=== PATIENT | female | born 1975 | race Caucasian/White ===

== ENCOUNTER 2017-10-24 07:05 | Day surgery (SDC) | payer BC ==
[2017-10-24] MEDS ORDERED: fentaNYL 100 MCG/2 ML SDV ONE ×2 (07:32→08:30)
[2017-10-24] MEDS ORDERED: Propofol 200 MG/20 ML SDV ONE ×2 (07:32→08:19)
[2017-10-24] MEDS ORDERED: Lidocaine 2% 5 ML SDV ONE (07:32)
[2017-10-24] MEDS ORDERED: Midazolam 1 MG/ML 2 ML SDV ONE (07:33)
[2017-10-24] MEDS ORDERED: ceFAZolin/Dextrose,Iso-Osmotic 2 GM/50 ML Duplex Bag IV ONE (07:51)
--- NOTE | 2017-10-24 07:51 | PCM.PREANE ---
Preanesthetic Assessment - Anesthesia/Transfusion/Family Hx Anesthesia History: Prior Anesthesia Without Reaction Family History of Anesthesia Reaction: No Transfusion History: No Prior Transfusion(s) - Review of Systems General: No Symptoms Pulmonary: No Symptoms Cardiovascular: No Symptoms Gastrointestinal: No Symptoms Neurological: No Symptoms Other: Reports: None - Physical Assessment NPO Status Date: 10/23/17 Height: 1.73 m Weight: 83.915 kg ASA Class: 2 Mental Status: Alert & Oriented x3 Airway Class: Mallampati = 1 Dentition: Reports: Normal Dentition ROM/Head Extension: Full Lungs: Clear to Auscultation, Normal Respiratory Effort Cardiovascular: Regular Rate, Regular Rhythm - Lab Values: Laboratory Last Values Urine HCG, Qual NEGATIVE (NEGATIVE) 10/24/17 07:25 - Allergies Allergies/Adverse Reactions: Allergies Allergy/AdvReac Type Severity Reaction Status Date / Time No Known Allergies Allergy Verified 10/19/17 07:41 - Anesthesia Plan Pre-Op Medication Ordered: None - Acknowledgements Anesthesia Type Planned: MAC Pt an Appropriate Candidate for the Planned Anesthesia: Yes Alternatives and Risks of Anesthesia Discussed w Pt/Guardian: Yes Pt/Guardian Understands and Agrees with Anesthesia Plan: Yes PreAnesthesia Questionnaire HEENT History: Reports: None Gastrointestinal History: Reports: Other (See Below) Other Gastrointestinal History: occasional heartburn Genitourinary History: Reports: None 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 History: Reports: Endometriosis, Endocrine/Metabolic History: Reports: Hypothyroidism - Past Surgical History Head Surgeries/Procedures: Reports: None HEENT Surgical History: Reports: LASIK, Oral Surgery Female Surgical History: Reports: Section, Hysterectomy Other Female Surgeries/Procedures: partial laparoscopic vaginal hysterectomy , laparoscopies for endometriosis - SUBSTANCE USE Smoking Status *Q: Never Smoker Recreational Drug Use History: No - HOME MEDS Home Medications: Home Meds Levothyroxine Sodium 137 mcg PO DAILY 10/19/17 [History] - CURRENT (IN HOUSE) MEDS Current Meds: Current Medications Hydrocodone Bitart/Acetaminophen ([place] 325-5 Mg) 1 tab PO Q4H PRN PRN Reason: Pain Bupivacaine HCl/Epinephrine Bitart (Marcaine 0.25%/Epinephrine 1:200,000) 10 ml INJECT ONETIME ONE Stop: 10/24/17 08:01 Cefazolin Sodium/Dextrose 2 gm (/ Premix) 50 mls @ 100 mls/hr IV ONETIME ONE Stop: 10/24/17 08:29 Lactated Ringer's (Ringers, Lactated) 1,000 mls @ 125 mls/hr IV ASDIRECTED VANESSA Last Admin: 10/24/17 07:33 Dose: 125 mls/hr Discontinued Medications Fentanyl (Sublimaze) Confirm Administered Dose 100 mcg .ROUTE .STK-MED ONE Stop: 10/24/17 07:33 Lidocaine (Xylocaine-Mpf 2%) Confirm Administered Dose 5 ml .ROUTE .STK-MED ONE Stop: 10/24/17 07:33 Midazolam HCl (Versed 1 Mg/Ml) Confirm Administered Dose 2 mg .ROUTE .STK-MED ONE Stop: 10/24/17 07:34 Propofol (Diprivan 20 Ml) Confirm Administered Dose 400 mg .ROUTE .STK-MED ONE Stop: 10/24/17 07:33
[2017-10-24] MEDS ORDERED: Lactated Ringers 1,000 ML IV SCH (08:00)
[2017-10-24] MEDS ORDERED: Acetaminophen/HYDROcodone 325-5 MG Tab PO PRN (08:00)
[2017-10-24] MEDS ORDERED: ceFAZolin 2 GM in Premix Bag 1 BAG IV ONE (08:00)
[2017-10-24] MEDS ORDERED: Bupivacaine 0.25%/EPINEPHrine 1:200,000 10 ML SDV INJECT ONE (08:00)
[2017-10-24] MEDS ORDERED: Ketorolac 30 MG/ML SDV ONE (08:23)
--- NOTE | 2017-10-24 09:25 | PCM.OPNOTE ---
- General Post-Op/Procedure Note Date of Surgery/Procedure: 10/24/17 Operative Procedure(s): excision of left back intramuscular lipoma 4cm. excision of right groin subcutaneous lipoma 3cm Pre Op Diagnosis: back and groin lipomas Post-Op Diagnosis: Same Anesthesia Technique: Local, MAC Primary Surgeon: Alva Rivas Complications: None Condition: Good
--- NOTE | 2017-10-24 10:47 | PCM48HPAN ---
Post Anesthesia Note - EVALUATION WITHIN 48HRS OF ANESTHETIC Vital Signs in Normal Range: Yes Patient Participated in Evaluation: Yes Respiratory Function Stable: Yes Airway Patent: Yes Cardiovascular Function Stable: Yes Hydration Status Stable: Yes Pain Control Satisfactory: Yes Nausea and Vomiting Control Satisfactory: Yes Mental Status Recovered: Yes Resp Rate: 16
--- NOTE | 2017-10-24 10:47 | PCM.POSTAN ---
POST ANESTHESIA ASSESSMENT - MENTAL STATUS Mental Status: Alert, Oriented - RESPIRATORY Respiratory Status: Respiratory Rate WNL, Airway Patent, O2 Saturation Stable - CARDIOVASCULAR CV Status: Pulse Rate WNL, Blood Pressure Stable - GASTROINTESTINAL GI Status: No Symptoms - POST OP HYDRATION Hydration Status: Adequate & Stable
--- NOTE | 2017-10-31 16:21 | OR ---
SURGEON: SHAKIRA CASTAÑEDA MD DATE OF PROCEDURE: 10/24/2017 PREOPERATIVE DIAGNOSIS: Back and groin lipoma. POSTOPERATIVE DIAGNOSIS: Back and groin lipoma with intramuscular component of the back lipoma. PROCEDURES: 1. Excision of left back intramuscular lipoma, 4 cm. 2. Excision of right groin subcutaneous lipoma, 3 cm. ANESTHESIA: Local MAC. INDICATIONS: Ms. Israel is a 42-year-old female with several other lipoma. These lesions having been removed previously. She presents with two that are bothersome to her at this time. The left back lipoma was intramuscular and quite deep and thus elected to be taken care of in the operating room. Risks and benefits of this were discussed with her including, but not limited to, bleeding, infection, damage to underlying or overlying structures, possible need for future interventions, possible scarring. PROCEDURE IN DETAIL: After informed consent was obtained and placed on the chart, the patient was brought to the operating theater and laid in left and right lateral decubitus position. After adequate local MAC anesthesia was obtained, the area was prepped draped and a time-out was completed to confirm side and site. 0.25% Marcaine with epinephrine was used into the area and a 15 blade was used to dissect through the skin and Bovie to dissect through the subcutaneous tissues. The deeper fascial layers were located and breached, and the lipoma was brought into visualization. Dissection was carried circumferentially, and there was a small intramuscular component at the deep aspect of the lipoma. Once freed from the muscle, meticulous hemostasis was obtained of the muscle itself and the lipoma was sent for pathology. Attention was then paid to copious irrigation and closure using a 2-0 PDS Stratafix for the fascia, 3-0 Stratafix for the skin, and a running subcuticular for a total length of closure of 4 cm. This was dressed with a Steri-Strip and Tegaderm border. Attention was then paid to the right groin lipoma and after repositioning, prepping, draping, and adequate anesthesia, a 15 blade was used to dissect through the skin and subcutaneous tissues, and the lipoma was easily removed in the subcutaneous plane for a total length of 3 cm. Once removed and sent for pathology, the area was irrigated and no residual was appreciated and the skin was closed using a 3-0 Monocryl stitch for the deep dermis, and a running 4-0 subcuticular for the skin, was dressed with Steri-Strips. A Tegaderm border used for outer dressing. The patient tolerated this well. All counts and needles were correct at the end of the case. FOLLOWUP INSTRUCTIONS: The patient will see us in 10 to 14 days sooner if any problems, questions, or concerns. She was given a prescription for pain control if needed. MARCELO / GUSTAVO /[id number]
== END 2017-10-24 09:38 | disposition home or self-care (01) ==
LOC: MW.SDS 07:05
PROVIDERS: ATTEND Plastic Surgery
DX: D17.9 Benign lipomatous neoplasm, unspecified (principal); D17.39 Benign lipomatous neoplasm of skin and subcutaneous tissue of other sites; E03.9 Hypothyroidism, unspecified; Z79.899 Other long term (current) drug therapy
CPT/HCPCS: 11403; 12032; 21932; 81025; 88304; J0690; J1885; J2250; J3010; J7120; 00400; J2704

== ENCOUNTER 2020-03-09 16:07 | Emergency (ER) | payer BC ==
--- NOTE | 2020-03-09 16:32 | EDM.PDOC ---
ED HPI GENERAL MEDICAL PROBLEM - General Chief Complaint: Respiratory Problem Stated Complaint: REFER FROM [facility] Time Seen by Provider: 03/09/20 16:11 Source of Information: Reports: Patient History Limitations: Reports: No Limitations - History of Present Illness INITIAL COMMENTS - FREE TEXT/NARRATIVE: 44F PMHx hypothyroidism presents from COVID clinic for concern for COVID infe ction. Patient had positive exposure at a wedding roughly 2 weeks ago. For last 10 days has "run through the gambit" of symptoms w/ dry cough, CP, SOB, abdominal pain, N/V/D, body aches, fever, and GUALLPA. Notes that fever, abdominal pain, N/V/D, body aches, GUALLPA all improving. She presented to COVID clinic today b/c of worsening SOB and chest tightness/pleuritic CP over last 2 days. Denies LE swelling/redness/pain. In COVID clinic apparently had O2 sats in low 80s prompting transition of care to ED. In ED patient satting mid 90s on RA. - Related Data Allergies Allergy/AdvReac Type Severity Reaction Status Date / Time No Known Allergies Allergy Verified 10/19/17 07:41 Home Meds: Home Meds Levothyroxine Sodium 137 mcg PO DAILY 10/19/17 [History] Acetaminophen/HYDROcodone [[place] 325-5 MG] 1 tab PO Q4H PRN #30 tablet 10/24/17 [Rx] Albuterol Sulfate 1.25 mg IH Q6H PRN #30 vial.neb 03/09/20 [Rx] LORazepam [Ativan] 0.5 mg PO BEDTIME PRN #6 tab 03/09/20 [Rx] Past Medical History HEENT History: Reports: None Gastrointestinal History: Reports: Other (See Below) Other Gastrointestinal History: occasional heartburn Genitourinary History: Reports: None 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 ED EXAM, GENERAL - Physical Exam Exam: See Below Exam Limited By: No Limitations General Appearance: Alert, WD/WN, No Apparent Distress Nose: Normal Inspection Throat/Mouth: Normal Inspection, Normal Voice, No Airway Compromise Head: Atraumatic, Normocephalic Neck: Normal Inspection Respiratory/Chest: No Respiratory Distress, Lungs Clear, Normal Breath Sounds, No Accessory Muscle Use Cardiovascular: Normal Peripheral Pulses, Regular Rate, Rhythm, No Edema GI/Abdominal: Soft, Non-Tender Extremities: Normal Inspection Neurological: Alert Psychiatric: Normal Affect, Normal Mood Skin Exam: Warm, Dry, Intact EKG INTERPRETATION EKG Date: 03/09/20 Time: 16:16 Rhythm: NSR Rate (Beats/Min): 80 [place]: Normal P-Wave: Present QRS: Normal ST-T: Normal QT: Normal ND/PQ Interval: 138 Comparison: NA - No Prior EKG EKG Interpretation Comments: no evidence of ischemia or right heart strain Course - Vital Signs Last Recorded V/S: Last Vital Signs Temp 98.2 F 03/09/20 16:17 Pulse 86 03/09/20 16:17 Resp 16 03/09/20 16:17 BP 121/59 L 03/09/20 16:17 Pulse Ox 97 03/09/20 16:30 - Orders/Labs/Meds Orders: Active Orders 24 hr Category Date Time Status EKG Documentation Completion [RC] STAT Care 03/09/20 16:23 Active Chest 1V Frontal [CR] Stat Exams 03/09/20 16:24 Ordered Labs: Laboratory Tests 03/09/20 03/09/20 03/09/20 Range/Units 16:13 16:13 16:13 WBC 6.55 (4.0-11.0) K/uL RBC 4.21 L (4.30-5.90) M/uL Hgb 13.3 (12.0-16.0) g/dL Hct 40.6 (36.0-46.0) % MCV 96.4 (80.0-98.0) fL MCH 31.6 (27.0-32.0) pg MCHC 32.8 (31.0-37.0) g/dL RDW Std Deviation 44.5 (28.0-62.0) fl RDW Coeff of Rhianna 13 (11.0-15.0) % Plt Count 183 (150-400) K/uL MPV 11.80 (7.40-12.00) fL Neut % (Auto) 60.9 (48.0-80.0) % Lymph % (Auto) 27.8 (16.0-40.0) % [place] % (Auto) 11.1 (0.0-15.0) % Eos % (Auto) 0.2 (0.0-7.0) % Baso % (Auto) 0.0 (0.0-1.5) % Neut # (Auto) 4.0 (1.4-5.7) K/uL Lymph # (Auto) 1.8 (0.6-2.4) K/uL [place] # (Auto) 0.7 (0.0-0.8) K/uL Eos # (Auto) 0.0 (0.0-0.7) K/uL Baso # (Auto) 0.0 (0.0-0.1) K/uL Nucleated RBC % 0.0 /100WBC Nucleated RBCs # 0 K/uL INR APTT (18.6-31.3) SEC D-Dimer, Quantitative (0.0-0.50) mg/L FEU Lactate 1.1 (0.20-2.00) mmol/L Sodium 138 (136-145) mmol/L Potassium 3.8 (3.5-5.1) mmol/L Chloride 103 (98-107) mmol/L Carbon Dioxide 26.2 (21.0-32.0) mmol/L BUN 6 L (7.0-18.0) mg/dL Creatinine 0.6 (0.6-1.0) mg/dL Est Cr Clr Drug Dosing 121.96 mL/min Estimated GFR (MDRD) > 60.0 ml/min Glucose 105 (74-106) mg/dL Calcium 8.6 (8.5-10.1) mg/dL Magnesium 2.2 (1.8-2.4) mg/dL Total Bilirubin 0.3 (0.2-1.0) mg/dL AST 35 (15-37) IU/L ALT 43 (14-63) IU/L Alkaline Phosphatase 81 (46-116) U/L Troponin I < 0.050 (0.000-0.056) ng/mL C-Reactive Protein 5.00 H (0.00-0.90) mg/dL Total Protein 7.5 (6.4-8.2) g/dL Albumin 3.6 (3.4-5.0) g/dL Globulin 3.9 (2.6-4.0) g/dL Albumin/Globulin Ratio 0.9 (0.9-1.6) HCG, Qual (NEG) SARS CoV-2 RNA Rapid ZORAN (NEGATIVE) 03/09/20 03/09/20 03/09/20 Range/Units 16:13 16:13 16:32 WBC (4.0-11.0) K/uL RBC (4.30-5.90) M/uL Hgb (12.0-16.0) g/dL Hct (36.0-46.0) % MCV (80.0-98.0) fL MCH (27.0-32.0) pg MCHC (31.0-37.0) g/dL RDW Std Deviation (28.0-62.0) fl RDW Coeff of Rhianna (11.0-15.0) % Plt Count (150-400) K/uL MPV (7.40-12.00) fL Neut % (Auto) (48.0-80.0) % Lymph % (Auto) (16.0-40.0) % [place] % (Auto) (0.0-15.0) % Eos % (Auto) (0.0-7.0) % Baso % (Auto) (0.0-1.5) % Neut # (Auto) (1.4-5.7) K/uL Lymph # (Auto) (0.6-2.4) K/uL [place] # (Auto) (0.0-0.8) K/uL Eos # (Auto) (0.0-0.7) K/uL Baso # (Auto) (0.0-0.1) K/uL Nucleated RBC % /100WBC Nucleated RBCs # K/uL INR 0.97 APTT 25.5 (18.6-31.3) SEC D-Dimer, Quantitative 0.33 (0.0-0.50) mg/L FEU Lactate (0.20-2.00) mmol/L Sodium (136-145) mmol/L Potassium (3.5-5.1) mmol/L Chloride (98-107) mmol/L Carbon Dioxide (21.0-32.0) mmol/L BUN (7.0-18.0) mg/dL Creatinine (0.6-1.0) mg/dL Est Cr Clr Drug Dosing mL/min Estimated GFR (MDRD) ml/min Glucose (74-106) mg/dL Calcium (8.5-10.1) mg/dL Magnesium (1.8-2.4) mg/dL Total Bilirubin (0.2-1.0) mg/dL AST (15-37) IU/L ALT (14-63) IU/L Alkaline Phosphatase (46-116) U/L Troponin I (0.000-0.056) ng/mL C-Reactive Protein (0.00-0.90) mg/dL Total Protein (6.4-8.2) g/dL Albumin (3.4-5.0) g/dL Globulin (2.6-4.0) g/dL Albumin/Globulin Ratio (0.9-1.6) HCG, Qual NEGATIVE (NEG) SARS CoV-2 RNA Rapid ZORAN POSITIVE H (NEGATIVE) - Re-Assessments/Exams Free Text/Narrative Re-Assessment/Exam: 03/09/20 16:35 Will get labs/EKG/CXR. Will get D-dimer to screen for PE. Will continue monitoring oxygen very closely but will defer supplemental O2 in setting of normal O2 sats on RA at this time. Normal HR and no fever; patient denies antipyretic use for last 2 days as fever/body aches all improving. 03/09/20 17:14 Labs grossly unremarkable; d-dimer negative. CXR unremarkable. WIll d/c with COVID return precautions. Departure - Departure Time of Disposition: 17:17 Disposition: Home, Self-Care 01 Condition: Good Clinical Impression: COVID-19 - Discharge Information Prescriptions: LORazepam [Ativan] 0.5 mg PO BEDTIME PRN #6 tab PRN Reason: Anxiety Instructions: COVID-19: How to Protect Yourself and Others - CDC, COVID-19 Frequently Asked Questions Referrals: Dustin Carlson MD [Primary Care Provider] - Forms: ED Department Discharge Additional Instructions: The following information is given to patients seen in the emergency department who are being discharged to home. This information is to outline your options for follow-up care. We provide all patients seen in our emergency department with a follow-up referral. The need for follow-up, as well as the timing and circumstances, are variable depending upon the specifics of your emergency department visit. If you don't have a primary care physician on staff, we will provide you with a referral. We always advise you to contact your personal physician following an emergency department visit to inform them of the circumstance of the visit and for follow-up with them and/or the need for any referrals to a consulting specialist. The emergency department will also refer you to a specialist when appropriate. This referral assures that you have the opportunity for follow-up care with a specialist. All of these measure are taken in an effort to provide you with optimal care, which includes your follow-up. Under all circumstances we always encourage you to contact your private physician who remains a resource for coordinating your care. When calling for follow-up care, please make the office aware that this follow-up is from your recent emergency room visit. If for any reason you are refused follow-up, please contact the [facility] Emergency Department at and asked to speak to the emergency department charge nurse. Please follow up with your primary care physician. If you do not have a primary care physician, see below: [facility] [address] [place] [id number] [facility] [address] [place] [id number] Sepsis Event Note (ED) - Evaluation Sepsis Screening Result: No Definite Risk - Focused Exam Vital Signs: Vital Signs Temp Pulse Resp BP Pulse Ox 03/09/20 16:30 97 03/09/20 16:17 98.2 F 86 16 121/59 L 99 - My Orders Last 24 Hours: My Active Orders 03/09/20 16:23 EKG Documentation Completion [RC] STAT 03/09/20 16:24 Chest 1V Frontal [CR] Stat - Assessment/Plan Last 24 Hours: My Active Orders 03/09/20 16:23 EKG Documentation Completion [RC] STAT 03/09/20 16:24 Chest 1V Frontal [CR] Stat
[2020-03-09 16:48] LABS: BLOOD UREA NITROGEN,BUN 6 mg/dL (7.0-18.0); CARBON DIOXIDE,CO2 26.2 mmol/L (21.0-32.0); CHLORIDE,CL 103 mmol/L (98-107); GLUCOSE RANDOM 105 mg/dL (74-106); POTASSIUM,K 3.8 mmol/L (3.5-5.1); SODIUM,NA 138 mmol/L (136-145)
--- NOTE | 2020-03-09 17:35 | CR ---
Chest: Portable view of the chest was obtained. Comparison: No prior chest imaging. Slight parenchymal density within left upper chest is seen. Mild atelectasis is noted within left lower lung. Lungs otherwise are clear. Heart size and mediastinum are normal. Bony structures are unremarkable. Impression: 1. Probable small area of pneumonia within left upper chest. 2. Left basilar atelectasis is seen. Diagnostic code #3 This report was dictated in MDT
== END 2020-03-09 17:41 | disposition home or self-care (01) ==
LOC: MW.ED 16:07
DX: U07.1 COVID-19 (principal); E03.9 Hypothyroidism, unspecified; Z90.710 Acquired absence of both cervix and uterus; Z79.899 Other long term (current) drug therapy
CPT/HCPCS: 36415; 71045; 71045-26; 80053; 83605; 83735; 84484; 84703; 85025; 85379; 85610; 85730; 86140; 93005; 99285-25; U0002